=== PATIENT | female | born 1990 | race Two or more races ===

== ENCOUNTER 2021-08-30 05:05 | Emergency (ER) | payer OTHER ==
[~2021-08-30] VITALS: Ht 167.6 cm; Wt 72.6 kg
[2021-08-30] MEDS ORDERED: ACETAMINOPHEN WITH CODEINE 300/30MG TABLET PO ONE (05:15)
[2021-08-30] MEDS ORDERED: KETAMINE HCL 50 MG/ML 10ML IV ONE (06:45)
[2021-08-30] MEDS ORDERED: ONDANSETRON HCL 4MG/2ML INJ IV ONE (06:45)
[2021-08-30] MEDS ORDERED: LIDOCAINE HCL/PF 1% 10 MG/ML 5ML VIAL INFIL ONE (08:15)
[2021-08-30] MEDS ORDERED: LIDOCAINE HCL 1% 10 MG/ML 10ML VIAL INJ ONE (08:15)
[2021-08-30] MEDS: PROPOFOL 200MG/20ML VIAL IV PRN ×2 (08:41→09:10)
[2021-08-30] MEDS ORDERED: MORPHINE SULFATE 4 MG/ML CPJ (NOT FOR IM USE) IV ONE (08:45)
[2021-08-30] MEDS ORDERED: IBUP-2028 PO (08:56)
[2021-08-30 11:05] VITALS: BP 122/68
== END 2021-08-30 11:06 | disposition home or self-care (01) ==
LOC: ER 05:05
DX: S52.531A Colles' fracture of right radius, initial encounter for closed fracture (principal); S61.411A Laceration without foreign body of right hand, initial encounter; V49.88XA Car occupant (driver) (passenger) injured in other specified transport accidents, initial encounter; Y93.89 Activity, other specified; Y92.89 Other specified places as the place of occurrence of the external cause; Y99.8 Other external cause status
CPT/HCPCS: 25605; 73060; 73070; 73090; 73100; 73130; 96374; 96375; 99152; 99285; J2270; J2405; J2704; J3490